=== PATIENT | male | born 1985 | race Caucasian/White ===

== ENCOUNTER 2022-10-05 21:39 | Emergency (ER) | payer SELFPAY ==
[~2022-10-05] VITALS: Ht 170.2 cm; Wt 82.0 kg
[2022-10-05] MEDS ORDERED: ACETAMINOPHEN 325MG TABLET PO ONE (23:00)
[2022-10-05] MEDS ORDERED: KETOROLAC 30MG/ML VIAL IM ONE (23:00)
[2022-10-05] MEDS: LIDOCAINE 5% PATCH TOP SCH (23:00)
[2022-10-05] MEDS ORDERED: MORPHINE SULFATE 4 MG/ML CPJ (NOT FOR IM USE) IV ONE (23:45)
[2022-10-06] MEDS ORDERED: ONDANSETRON 4MG ODT PO ONE
[2022-10-06] MEDS: LIDOCAINE 5% PATCH TOP SCH (03:37)
[2022-10-06] MEDS ORDERED: IOHEXOL-300 100 ML BOTTLE ONE (04:37)
[2022-10-06] MEDS ORDERED: ACET-2708 MT (05:27)
[2022-10-06] MEDS ORDERED: LIDO700A15 TP (05:27)
[2022-10-06] MEDS ORDERED: NAPR500T7 MT (05:27)
[2022-10-06] MEDS ORDERED: DOCU-150 MT (05:31)
[2022-10-06 06:04] VITALS: BP 121/86
== END 2022-10-06 06:05 | disposition home or self-care (01) ==
LOC: ER 21:39
DX: K42.9 Umbilical hernia without obstruction or gangrene (principal); M54.16 Radiculopathy, lumbar region
CPT/HCPCS: 74177; 96372; 96374; 99285; J1885; J2270; Q0162; Q9967

== ENCOUNTER 2022-10-10 11:53 | Emergency (ER) | payer SELFPAY ==
[~2022-10-10] VITALS: Ht 165.1 cm; Wt 73.0 kg
[~2022-10-10 11:53] MED LIST: ACET-2708 MT; DOCU-150 MT; LIDO700A15 TP; NAPR500T7 MT
[2022-10-10 13:00] VITALS: BP 100/68
[2022-10-10] MEDS ORDERED: KETOROLAC 30MG/ML VIAL IM ONE (13:00)
[2022-10-10] MEDS ORDERED: KETOROLAC 30MG/ML VIAL IM NR (13:00)
[2022-10-10] MEDS ORDERED: CYCL10TA21 MT (13:02)
== END 2022-10-10 15:02 | disposition home or self-care (01) ==
LOC: ER 11:53
DX: M54.50 Low back pain, unspecified (principal)
CPT/HCPCS: 96372; 99283; J1885